=== PATIENT | female | born 1945 | race Caucasian/White ===

== ENCOUNTER 2017-07-07 11:00 | Day surgery (SDC) | payer MEDICARE, OTHER ==
[~2017-07-07] VITALS: Ht 157.5 cm; Wt 67.0 kg
[~2017-07-07 11:00] MED LIST: AMLO5TAB2 PO; ASCO-294 PO; CHOL200025 PO; HYDR12.5 PO; LACT1CAP65 PO; Lactated Ringer's 1,000 ML IV ONE; MULT1CAP33 PO; VITA100T4 PO; [UNRECOGNIZED DRUG - CODE] PO
[2017-07-07] MEDS ORDERED: Propofol 10,000 mCg/mL 20 mL Inj ONE (11:01)
[2017-07-07 11:28] VITALS: BP 125/73; PULSE 90; RESP 16; O2SAT 99
[2017-07-07] MEDS ORDERED: Lactated Ringer's 1,000 ML IV SCH (13:58)
--- NOTE | 2017-07-07 13:58 | PCM.HPANE ---
Patient Data Surgeon Admitting Provider: Attending Provider:Ashley Montanez MD Primary Care Physician:Oanh Moreland Other Provider:Arsen Osman Anesthesia Reason for Visit Screening Ht/WT & BMI Height (Feet): 5 Height (Inches): 2 Weight (Kilograms): 67 Body Mass Index 27.00 Allergies Coded Allergies: valsartan (Verified Allergy, Unknown, lip swelling, 07/07/17) Past Anesthesia History Anesthesia History: Denies:: Abnormal Airway, Anesthesia Reactions, Difficult Intubation, Fam Anesthesia Reaction, Fam Malignant Hypertherm, Malignant Hyperthermia Diabetes History Hx Diabetes?: No MRSA MRSA: No Medications Hypertension Medication: No Home Meds Incl Beta Rhona: No Reported Medications Cholecalciferol (Vitamin D3) (Vitamin D3)2,000 Unit Tablet2,000 Unit PO 07/05/17 Ascorbate Calcium (Vitamin C)500 Mg Tablet1,000 Mg PO 07/05/17 Lactobacillus Acidophilus (Probiotic)1 Each Capsule1 Each PO 07/05/17 Multivitamin (Multivitamins)1 Each Capsule1 Each PO 07/05/17 Hydrochlorothiazide 12.5 Mg Aavxgfq13.5 Mg PO DAILY 30 Days Ref 0 07/05/17 [place]-3/Dha/Epa/Fish Oil (Fish Oil 1,000 mg Softgel)1,000 Mg (120 Mg-180 Mg) Capsule1,000 Mg PO 07/05/17 Vitamin B Complex 100 No.2 (B-100 Complex)100 Mg Tablet.er100 Mg PO 07/05/17 Amlodipine 5 Mg Tablet5 Mg PO DAILY Ref 0 07/05/17 History History of ENT Problems?: No HEENT History: Denies:: Abnormal Airway Cataracts Difficult Intubation Dysphagia Glaucoma Hearing Problem Sinus Problem TMJ Denture Type: None Teeth Condition: Within Normal Limits Hx of Heart Problems?: No Cardiovascular History: Positive for:: Hypertension Denies:: AICD Abdominal Aortic Aneurism Atrial Fibrillation Cardiac Surgery Chest Pain Congestive Heart Failure Coronary Artery Disease Edema Heart Murmur Irregular Heartbeat Pacemaker Peripheral Vascular Rheumatic Fever Thrombophlebitis Valvular Heart Disease Hx of Respiratory Problem?: No Respiratory History: Denies:: Asthma COPD Chest Surgery Cough Dyspnea Emphysema Hemoptysis Oxygen Administration Pneumonia Pulmonary Embolism Tuberculosis Use of C-PAP Machine Use of Inhalers / NEBS Hx Neurologic Problems?: No Neurological History: Denies:: CVA Hx of GI Problems?: Yes Hx of Problems?: No Female Hx: Denies:: Currently (mook) Hx Musculoskeletal Problems?: No Psycho Social History: Denies:: Anxiety Hx Depression Hx Surgeries?: Yes (open lap-endometriosis and fibroids removed.) Hx Any Other Health Problems?: No Hx Diabetes: No Hx Alcohol Use: Yes (socially) Stop/Bang Treated for Sleep Apnea?: No Do You Have a CPAP Machine?: No S-Snoring: Do You Snore Loudly: No T-Tired: feel tired, fatigued: No O-Obsered: Observed not breath: No P-Blood Pressure: treated: Yes B- Body Mass Index > 35 kg/m2: No A- Age over 50: Yes N- Neck Large Circumference: No G- Gender Male: No NICK Total Score: 2 NICK Risk Assessment: Low Risk, <3 Yes Risk Assessment Category Category 1A: Patient has history of documented sleep apnea, and HAS NOT received any narcotic, sedative or anesthesia administration during this stay. Category 1B: Patient has history of documented sleep apnea, and HAS received any narcotic , sedative or anesthesia administration during this stay Category 2: Patient has SUSPECTED Obstructive Sleep Apnea, and HAS received any narcotic , sedative or anesthesia administration during this stay. Category 3: Patient has SUSPECTED Obstructive Sleep Apnea and HAS NOT received narcotic, sedative or anesthesia administration during this stay. Category 4: Outpatient in Procedural Areas with known sleep apnea or who screen positive for High Risk via the STOP/BANG questionnaire. Exam Exam Vital Signs Vital Signs Date Time Temp Pulse Resp B/P Pulse Ox O2 Delivery O2 Flow Rate FiO2 07/07/17 11:28 36.6 90 16 125/73 99 Room Air General Appearance: Oriented X3 HEENT/AIRWAY: MP 2 Lungs: Normal Air Movement Heart: Regular Rate/Rhythm Plan Impression Patient chart reviewed, patient interviewed and anesthestic plan with risks, benefits, and alternatives discussed, and informed consent obtained. ASA Physical Status: ASA2 Mod Systemic Disease Anesthetic Plan: MAC Bene/Risks/Altern/Consents: Yes HP Complete Prior to Induction: Yes Waylon Minor MD Jul 07, 2017 13:58
[2017-07-07] MEDS ORDERED: MetoCLOpramide 5 mg/mL 2 mL Inj IVPUSH PRN (14:00)
[2017-07-07] MEDS ORDERED: Ondansetron 2 mg/mL 2 mL Inj IVPUSH PRN (14:00)
[2017-07-07 14:44] VITALS: BP 108/58; PULSE 80; RESP 14; O2SAT 96
--- NOTE | 2017-07-07 14:51 | PCM.ANEP1 ---
Post Anesthesia PACU Phase 1 Assessment Vital Signs Vital Signs Date Time Temp Pulse Resp B/P Pulse Ox O2 Delivery O2 Flow Rate FiO2 07/07/17 14:44 80 14 108/58 96 Room Air 07/07/17 11:28 36.6 90 16 125/73 99 Room Air Anesthetic Administered: MAC Level of Alertness: Awake, talking Pain: No Nausea or Vomiting: No CV Function & Hydration Stable: Yes Airway Device: Lungs: Normal Air Movement PACU Phase 2 Assessment Patient Instructions Provided: N/A Waylon Minor MD Jul 07, 2017 14:51
[2017-07-07 15:04] VITALS: BP 111/55; PULSE 78; RESP 12; O2SAT 100
[2017-07-07 15:09] VITALS: BP 106/51; PULSE 73; RESP 12; O2SAT 97
--- NOTE | 2017-07-07 15:13 | ENDO ---
[address] [address] ENDOSCOPY PROCEDURE PATIENT: GIACOMO CALDERON : 1945 MR#: [id number] ADMIT: 07/07/2017 JOB ID: [id number] DATE: 07/07/2017 PREPROCEDURAL DIAGNOSIS: Colon cancer screening. POSTPROCEDURE DIAGNOSIS: Colon cancer screening. PROCEDURE PERFORMED: Colonoscopy with cold forceps biopsy. SURGEON: Ashley Montanez M.D. HAND STRIPPER: None. ENDOSCOPE: [facility] PCFH 190 DL. ANESTHESIA: Monitored anesthesia care. FINDINGS: 1. Scattered diverticula throughout the colon. 2. There was one rectosigmoid polyp at 17 cm that was removed with cold forceps biopsy. WITHDRAWAL TIME: 11 minutes. PREPARATION: Good. HISTORY OF PRESENT ILLNESS: This is a 72-year-old woman who last underwent colonoscopy 10 years ago and was, therefore, scheduled for a repeat screening colonoscopy. DESCRIPTION OF PROCEDURE: The patient was brought to the procedure suite and placed in the left lateral decubitus position. Monitored anesthesia care was induced because she had a history of failure of colonoscopy with moderate sedation. Digital rectal examination was performed and was normal. The colonoscope was advanced to the cecum which was identified by the appendiceal orifice and the ileocecal valve. It was then fully removed over the course of 11 minutes. The mucosa was carefully visualized and the prep was good. There were a few scattered diverticula throughout the colon. One rectosigmoid polyp was identified at 17 cm from the anal verge and was removed with cold forceps biopsy. Retroflex examination revealed internal hemorrhoids. The colonoscope was removed and the patient tolerated the procedure well. ESTIMATED BLOOD LOSS: None. COMPLICATIONS: None. SPECIMENS: Rectosigmoid polyp sent for permanent pathology.
--- NOTE | 2017-07-12 16:47 | PATH ---
SURGICAL PATHOLOGY Attending Physician:Ashley Montanez MD CASE STATUS: Signed Out PATIENT NAME: GIACOMO CALDERON PID: [id number] : 1945 DATE COLLECTED:07/07/2017 00:00 SPECIMEN: Rectum, Biopsy CLINICAL HISTORY: 1). RECTAL POLYP X1 @ 17CM FINAL DIAGNOSIS: Rectal Polyp at 17 cm, Biopsy: Hyperplastic polyp. ICD10: K63.5 GROSS DESCRIPTION: Received in formalin, labeled with the patient' s name and "rectal", is one fragment of milan, soft tissue measuring 0.2 x 0.1 x 0.1 cm. The fragment is totally submitted in one cassette. [id number]) ICD-9 CODES: CPT CODES: 1: 82767 Electronically Signed Out Moi Madden MD, Ph.D. [facility], [place] [address] Technical component performed at [facility], [address] [place] [address] Ave[address], [place], [address]
== END 2017-07-07 23:59 | disposition home or self-care (01) ==
LOC: END 11:00
PROVIDERS: ATTEND Surgery
DX: Z12.11 Encounter for screening for malignant neoplasm of colon (principal); K62.1 Rectal polyp; K57.30 Diverticulosis of large intestine without perforation or abscess without bleeding; I10 Essential (primary) hypertension; E78.5 Hyperlipidemia, unspecified; M85.80 Other specified disorders of bone density and structure, unspecified site; E55.9 Vitamin D deficiency, unspecified; Z87.891 Personal history of nicotine dependence
CPT/HCPCS: 45380; J2704; J7120